=== PATIENT | male | born 1990 | race Caucasian/White ===

== ENCOUNTER 2020-09-10 16:14 | Emergency (ER) | payer MEDICAID, OTHER ==
[~2020-09-10] VITALS: Ht 170.2 cm; Wt 64.9 kg
[2020-09-10 16:30] VITALS: BP 147/94
== END 2020-09-10 17:10 | disposition left against medical advice (07) ==
LOC: EDBD 16:14 → ER 16:14
DX: Z43.1 Encounter for attention to gastrostomy (principal); Z53.21 Procedure and treatment not carried out due to patient leaving prior to being seen by health care provider